=== PATIENT | male | born 2000 ===

== ENCOUNTER → 2022-02-24 | Outpatient (REF) | LOC: M EMP 13:07 | PROVIDERS: ATTEND Family Medicine | DX: Z11.52 Encounter for screening for COVID-19 (principal) ==

== ENCOUNTER → 2022-03-27 | Outpatient (REF) | LOC: M LABSMTC 09:54 | PROVIDERS: ATTEND Family Medicine | DX: Z11.52 Encounter for screening for COVID-19 (principal) ==